=== PATIENT | female | born 1935 | race Caucasian/White ===

== ENCOUNTER → 2016-10-12 | Outpatient (CLI) | payer OTHER, MEDICARE ==
[~2016-10-12] MED LIST: CALC200T PO; CITA10TA8 PO; DONE1TAB26 PO; ESTR1CRE PV; LEVO100T PO; MEMA10TA PO; MISCTAB78 PO; RISE150T PO
[2016-10-12 09:13] LABS: CALCIUM 8.7 mg/dl (8.5-10.1)
[2016-10-12 09:14] LABS: BLOOD UREA NITROGEN 21 mg/dl (7-18); BUN/CREATININE RATIO 28.5 (10-20); CARBON DIOXIDE 29 mmol/L (21-32); CHLORIDE 108 mmol/L (98-107); CREATININE 0.74 mg/dl (0.60-1.20); GLUCOSE 106 mg/dl (70-99); SODIUM 144 mmol/L (136-145)
== END | disposition home or self-care (01) ==
LOC: C.LABVPSUA 08:52
PROVIDERS: ATTEND Internal Medicine Critical Care Medicine
DX: I10 Essential (primary) hypertension (principal); E03.9 Hypothyroidism, unspecified

== ENCOUNTER → 2017-04-27 | Outpatient (CLI) | payer OTHER, MEDICARE ==
[2017-05-02 09:53] LABS: HERPES SIMPLEX CULT SOURCE GENITAL-VAGINAL; HERPES SIMPLEX VIRUS CULT NOT ISOLATED (NOT ISOLATED)
== END ==
LOC: C.LABVPSUA 13:00
PROVIDERS: ATTEND Internal Medicine Critical Care Medicine
DX: B00.9 Herpesviral infection, unspecified (principal)

== ENCOUNTER → 2018-01-30 | Outpatient (CLI) | payer OTHER, MEDICARE ==
[2018-01-30 16:16] LABS: BLOOD UREA NITROGEN 11 mg/dl (7-18); CARBON DIOXIDE 26 mmol/L (21-32); CREATININE 0.74 mg/dl (0.60-1.20); GLUCOSE 106 mg/dl (70-99); POTASSIUM 4.3 mmol/L (3.5-5.1); SODIUM 142 mmol/L (136-145)
== END | disposition home or self-care (01) ==
LOC: C.LABVPSUA 15:06
PROVIDERS: ATTEND Internal Medicine Critical Care Medicine
DX: R25.1 Tremor, unspecified (principal); E03.9 Hypothyroidism, unspecified